=== PATIENT | male | born 1965 | race American Indian/Alaskan Native ===

== ENCOUNTER 2023-09-07 16:08 | Emergency (ER) | payer OTHER, SELFPAY ==
[2023-09-07 16:20] VITALS: BP 132/70; PULSE 90; O2SAT 96
[2023-09-07 16:28] VITALS: BP 108/59; PULSE 77; RESP 20; TEMP 36.6; BMI 28.0
[2023-09-07 16:44] VITALS: PULSE 81; O2SAT 96
[2023-09-07 17:14] VITALS: TEMP 36.4
--- NOTE | 2023-09-07 17:18 | ED_ITS ---
HPI - General Adult General Chief complaint: ETOH/Substance Use Stated complaint: ETOH, chronic left knee pain Time Seen by Provider: 09/07/23 16:52 Source: patient and EMS Mode of arrival: EMS Limitations: no limitations History of Present Illness HPI narrative: Patient is a 58 year old assigned male at with a history of left knee pain presenting to the emergency department today with he has had fluid on his left knee multiple times before and he believes he has fluid again and pain. Patient denies any dizziness, lightheadedness, abdominal pain, nausea, vomiting, fever, chills, blurry vision, double vision, loss of vision, chest pain, difficulty breathing, shortness of breath, back pain, night sweats, pain with urination, increased urinary frequency, increased urinary urgency, blood in his urine or s tool, syncope or a near syncopal episode, recent trauma or falls, bowel incontinence, bladder incontinence, bowel retention, bladder retention, or any other complaints at this time. Onset (ago): day(s) Location: left and lower extremity Severity: mild Severity scale (1-10): 3 Relieving factors: none Exacerbating factors: none Associated symptoms: denies other symptoms Treatments prior to arrival: none Related Data Allergies Allergy/AdvReac Type Severity Reaction Status Date / Time No Known Allergies Allergy Verified 09/07/23 16:30 Review of Systems Constitutional: Constitutional: Reports no additional constitutional complaints, Denies chills, Denies fever(s) and Denies night sweats Eyes: Eyes: Reports no additional eye complaints, Denies blurry vision, Denies change in vision, Denies diplopia, Denies eye discharge, Denies loss of vision and Denies eye pain ENT: Denies dizziness Cardiovascular: Cardiovascular: Reports no additional cardiovascular complaints, Denies chest pain, Denies lightheadedness, Denies Loss of Consciousness and Denies dyspnea Respiratory: Respiratory: Reports no additional respiratory complaints and Denies dyspnea Gastrointestinal: Gastrointestinal: Reports no additional gastrointestinal complaints, Denies abdominal pain, Denies melena, Denies hematochezia, Denies change in bowel habits and Denies change in stool character Genitourinary: Genitourinary: Reports no additional male genitourinary complaints, Denies hematuria, Denies oliguria, Denies difficulty urinating, Denies dysuria, Denies urinary frequency, Denies urinary hesitancy, Denies urinary incontinence and Denies urinary urgency Musculoskeletal: Musculoskeletal: Reports no additional musculoskeletal complaints, Denies numbness and Denies tingling Comments: left knee pain Neurologic: Denies dizziness, Denies loss of vision, Denies numbness and Denies tingling Psychiatric: Psychiatric: Reports no additional psychiatric complaints Endocrine: Endocrine: Reports no additional endocrine complaints Hematologic/Lymphatic: Hematologic/Lymphatic: Reports no additional hematologic/lymphatic complaints Allergic/Immunologic: Allergic/Immunologic: Reports no additional allergic/immunologic complaints [facility] Past Medical History Attestation statement: The following information was validated with the patient. Source: old records reviewed and nursing notes reviewed Social History Social History Alcohol intake: current Alcohol intake frequency: 3 or more drinks per day Alcohol type: hard liquor Smoked in Last 30 Days: No Advance Directives: No Advance Directives Information Provided: No Physical Exam ED Vital Signs: Vital Signs - 24 hr 09/07/23 16:28 09/07/23 16:44 09/07/23 17:14 Temperature 97.9 F 97.5 F Pulse Rate 77 81 Respiratory Rate 20 Blood Pressure 108/59 L Pulse Oximetry 96 Oxygen Delivery Method Room Air 09/07/23 18:14 09/07/23 18:38 Temperature 98.4 F 97.9 F Pulse Rate 84 100 Respiratory Rate 18 16 Blood Pressure 130/86 141/85 H Pulse Oximetry 98 98 Oxygen Delivery Method Room Air Room Air BMI result Body Mass Index 28.0 Const General: cooperative, no acute distress, alert and awake Nutritional Appearance: well nourished Orientation/consciousness: patient oriented x3 Limitations: no limitations [facility] Head: Yes normal to inspection and Yes atraumatic Ears: hearing grossly normal bilaterally and external ears normal General nose exam: Normal external nose present, no nasal discharge noted and no epistaxis Face and sinus: Yes normal facial exam, No abrasion and No laceration Mouth: Normal oral and palatal mucosa present, no drooling and no muffled voice Eyes General: appearance normal, both eyes and all related structures Periorbital: periorbital findings normal Eyelids: Yes eyelids normal Conjunctivae: conjunctivae normal Pupils: Equal, round and reactive pupils present EOM: EOMs intact bilaterally Neck Neck: Yes normal visual inspection, Yes full ROM and Yes no lymphadenopathy Chest Chest palpation & inspection: normal inspection of the chest Resp Effort & Inspection: normal respiratory effort and able to speak in complete sentences GI Inspection: Yes normal to inspection Neuro General: patient oriented x3 and moves all extremities Cranial nerves: Yes Equal, round and reactive pupils present Cognition (Neuro): normal cognition Motor exam (neuro): 5/5 motor strength present throughout Sensory Exam: Normal double simultaneous stimulation for sensation Coordination: [id number] test normal Extrem Other: minimal swelling present to the left knee General: Yes full ROM and Yes capillary refill normal Psych Appearance: grossly normal Mental Status: mental status grossly normal Affect: normal affect Attitude: cooperative Thought process: Normal thought process present Thought content: Normal thought content present Insight: Good insight present (Psych) Procedures Orthopedic Splinting/Casting Injury #1: Side: left Lower Extremity Injury Location: knee Lower Extremity Immobilizer: Cayden wrap Medical Decision Making Medical Decision Making MDM Narrative: Patient is a 58 year old assigned male at with a history of chronic left knee pain presenting to the emergency department today with left knee pain. Patient's physical exam was as noted in the physical exam portion of this note. I explained my physical exam findings to the patient. I answered all questions asked by the patient. Patient's left knee was wrapped in an CAYDEN wrap, without incident. Patient's PMS was intact prior to and after CAYDEN wrpa. I stressed the importance of the patient taking his medication as prescribed. I stressed the im portance of the patient following up with his primary care provider. I stressed the importance of the patient returning to the emergency department immediately if his symptoms were to worsen or if he were to develop any dizziness, shortness of breath, difficulty breathing, chest pain, blurry vision, loss of vision, nausea, vomiting, abdominal pain, fever, chills, back pain, or any other complaints. Patient verbalized agreement and understanding with this treatment plan and discharge. Differential Diagnosis Differential Diagnoses: The differential diagnosis associated with the presentation includes Joint effusion Knee pain Knee sprain Knee strain Chronic knee pain Admission/Observation Consideration of admission/observation: Escalation of care including admission/observation considered Patient would have been admitted to the hospital had his clinical presentation warranted hospital admission. Independent Historian Clinical information obtained from an independent historian. History obtained from or confirmed by: EMS (EMS provided additional history and confirmed the history provided by the patient. ) Discharge Plan Discharge Clinical Impression: Joint effusion Patient Disposition: Home, Self-Care Instructions: Swollen Knee Joint (ED) Additional Instructions: Follow up with your primary care provider and your orthopedic provider. Return to the emergency department immediately if your symptoms worsen or if you develop any dizziness, shortness of breath, difficulty breathing, chest pain, blurry vision, loss of vision, nausea, vomiting, abdominal pain, fever, chills, back pain, or any other complaints. Referrals: [facility] Family Medicine [Provider Group] (Call to establish and follow up with a primary care provider. If you already have a primary care provider, please follow up with them.) [facility] Primary Care, [facility] [Provider Group] (Call to establish and follow up with a primary care provider. If you already have a primary care provider, please follow up with them.) [facility] Primary Care,[facility] [Provider Group] (Call to establish and follow up with a primary care provider. If you already have a primary care provider, please follow up with them.) [facility] Orthopedic Surgeons [Provider Group] (Call to establish and follow up with an orthopedic provider if you are no longer following with yours. ) Interventions: ED Discharge Assessment Last Done: 09/07/23 18:41 Discharge Date/Time: 09/07/23 18:41 Print Language: Thai
--- NOTE | 2023-09-07 17:35 | PC.NURSE ---
[place], ETOH and bilateral knee pain. on arrival pt is alert and cooperative, vital signs stable, pt is answering this nurses questions. endorses 10/10 left knee pain. sts he is drinking because his pain is unbearable . CIWA score 0 at this time, COWS score 0. PA dee aware.
[2023-09-07 18:14] VITALS: BP 130/86; PULSE 84; RESP 18; TEMP 36.9; O2SAT 98
[2023-09-07 18:38] VITALS: BP 141/85; PULSE 100; RESP 16; TEMP 36.6; O2SAT 98
== END 2023-09-07 18:41 | disposition home or self-care (01) ==
PROVIDERS: Emergency Provider Emergency Medicine
DX: M25.462 Effusion, left knee (principal); M25.562 Pain in left knee
CPT/HCPCS: 99283; 99284

== ENCOUNTER 2023-10-04 09:01 | Outpatient (REF) | payer OTHER, SELFPAY ==
--- NOTE | ~2023-10-04 | XR_ITS ---
EXAMINATION: XR KNEE, LEFT XR KNEE, RIGHT XR KNEE, BILATERAL STANDING CLINICAL INFORMATION: Pain in unspecified knee. TECHNIQUE: AP standing view of bilateral knees. [place] and lateral views of each knee. COMPARISON: None. FINDINGS: LEFT KNEE: No significant joint effusion. Bones are diffusely demineralized. Severe degenerative changes with joint space narrowing, hypertrophic change and remodeling of articular surfaces in the patellofemoral and medial compartments. Moderate lateral joint space narrowing. RIGHT KNEE: No significant joint effusion. Moderate degenerative changes with tiny marginal osteophytes and mild joint space narrowing in the patellofemoral and medial compartments. XR/XR knee RT 2V IMPRESSION: 1. Severe degenerative changes left knee. 2. Moderate degenerative changes right knee.
--- NOTE | ~2023-10-04 | XR_ITS ---
EXAMINATION: XR KNEE, LEFT XR KNEE, RIGHT XR KNEE, BILATERAL STANDING CLINICAL INFORMATION: Pain in unspecified knee. TECHNIQUE: AP standing view of bilateral knees. [place] and lateral views of each knee. COMPARISON: None. FINDINGS: LEFT KNEE: No significant joint effusion. Bones are diffusely demineralized. Severe degenerative changes with joint space narrowing, hypertrophic change and remodeling of articular surfaces in the patellofemoral and medial compartments. Moderate lateral joint space narrowing. RIGHT KNEE: No significant joint effusion. Moderate degenerative changes with tiny marginal osteophytes and mild joint space narrowing in the patellofemoral and medial compartments. XR/XR knee standing BI IMPRESSION: 1. Severe degenerative changes left knee. 2. Moderate degenerative changes right knee.
--- NOTE | ~2023-10-04 | XR_ITS ---
EXAMINATION: XR KNEE, LEFT XR KNEE, RIGHT XR KNEE, BILATERAL STANDING CLINICAL INFORMATION: Pain in unspecified knee. TECHNIQUE: AP standing view of bilateral knees. [place] and lateral views of each knee. COMPARISON: None. FINDINGS: LEFT KNEE: No significant joint effusion. Bones are diffusely demineralized. Severe degenerative changes with joint space narrowing, hypertrophic change and remodeling of articular surfaces in the patellofemoral and medial compartments. Moderate lateral joint space narrowing. RIGHT KNEE: No significant joint effusion. Moderate degenerative changes with tiny marginal osteophytes and mild joint space narrowing in the patellofemoral and medial compartments. XR/XR knee LT 2V IMPRESSION: 1. Severe degenerative changes left knee. 2. Moderate degenerative changes right knee.
== END 2023-10-04 09:02 | disposition home or self-care (01) ==
LOC: HO.HOSX 09:01
PROVIDERS: Visit Provider Physician Assistant
DX: M25.561 Pain in right knee (principal); M25.562 Pain in left knee; M17.0 Bilateral primary osteoarthritis of knee
CPT/HCPCS: 20610; 73560; 73565; 99212; J1040

== ENCOUNTER 2023-10-04 09:55 | Outpatient (AMB) | payer MEDICAID, SELFPAY ==
--- NOTE | 2023-10-04 10:08 | MHC.OFFVIS ---
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 Hx of left knee surgery. Patient reports ongoing pain ever since he played football which banged his left knee. He was seen at [facility] ED on 09/07/23 for his left knee pain and swelling, referral was placed for orthopedics. Currently is having more pain on the left knee than his right. Pain is worse when walking pre patient. He reports that resting and taking ibuprofen 800mg provides him with relief. 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 The patient presented to the ED on 09/07/2023 via EMS after being found at a bus stop with a complaint of fluid on the left knee. He was placed in an INOCENCIA wrap and referred to Orthopedics. Patient states he was waiting at the bus stop to go to ?the clinic? at [facility], but did not specify which clinic. While in the office today the patient he has a knee injury in 2014. He states he has had on going pain every since he played football and hit his left knee. He reports he has more pain in the left knee then the right. He claims pain increases with ambulation. He reports resting and taking Ibuprofen 800 mg gives him relief. He will also sit in the tube to help with pain relief. Patient has a history of left knee surgery due to his knee being infected, 9 years ago, 2013 at [facility]. He states it took him 3 years to walk. Patient denies a medical history of diabetes mellitus. [facility] Social History (Updated 10/04/23 @ 10:14 by Babatunde Jose) Alcohol intake: current Alcohol intake frequency: 3 or more drinks per day Alcohol type: hard liquor Patient Tobacco Use Status: Current everyday Tobacco user Current occupational status: disabled Review of Systems Const All systems reviewed & are unremarkable except as noted in HPI and below Physical Exam Const General: cooperative and no acute distress Orientation/consciousness: patient oriented x3 Resp Effort & Inspection: normal respiratory effort and able to speak in complete sentences Cardio Peripheral pulses: Peripheral pulses 2+ throughout Skin General skin exam: no rashes or lesions noted Neuro General: patient oriented x3 Extrem Other: Bilateral knees: Normal to inspection. No ecchymosis, erythema, or joint effusion. No tenderness to palpation to the medial or lateral joint lines. Full knee extension and flexion. Crepitus felt with ROM of the left knee. NVI. Office Procedures Joint Injection/Drain Joint Injection/Drain Primary Site: right knee Secondary Site: left knee Injected: 80 mg of, DepoMedrol, with 8 mL of (2% plain lido ) and in the joint Approach Used: anterolateral Procedure: The patient tolerated the procedure well, but had some pain with the injection and there was some relief with the local anesthesia Coding 81634 - Large joint Procedure code (CPT) selection complete Assessment & Plan Assessment & Plan (1) Osteoarthritis of left knee: Code(s): M17.12 - Unilateral primary osteoarthritis, left knee (2) Osteoarthritis of right knee: Code(s): M17.11 - Unilateral primary osteoarthritis, right knee Plan Mr. Conteh is a 58-year-old male who presents in the office today, as a new patient, for an evaluation of bilateral knee pain. The patient presented to the ED on 09/07/2023 via EMS after being found at a bus stop with a complaint of fluid on the left knee. He was placed in an INOCENCIA wrap and referred to Orthopedics. Patient states he was waiting at the bus stop to go to ?the clinic? at [facility], but did not specify which clinic. While in the office today the patient he has a knee injury in 2015. He states he has had on going pain every since he played football and hit his left knee. He reports he has more pain in the left knee then the right. He claims pain increases with ambulation. He uses a cane to assist with ambulation. He reports resting and taking Ibuprofen 800 mg gives him relief. He will also sit in the tube to help with pain relief. Patient has a history of left knee surgery due to his knee being infected, 9 years ago, 2013 at [facility]. He states it took him 3 years to walk after surgery and antibiotics. Patient denies a medical history of diabetes mellitus. The patient was offered a cortisone injection in the bilateral knees with 80 mg of DepoMedrol. The patient was explained the risk, benefits, and alternatives to receiving this injection. After receiving consent for the injection, the patient had the procedure done while in office today. The patient tolerated the procedure well with no complications. Follow up will be PRN, or sooner if needed. X-rays of the bilateral knees which were obtained while in the office today and were reviewed by me, Germania Sears PA-C, revealed osteoarthritis. Of note: Per EMS report from 09/07/2023 the patient is currently homeless and was found at a bus stop after a call was made for overdose/poisoning. Orders: Orders XR knee standing BI Today M25.569 - Pain in unspecified knee XR knee RT 2V Today M25.569 - Pain in unspecified knee XR knee LT 2V Today M25.569 - Pain in unspecified knee XR foot RT min 3V Today M79.673 - Pain in unspecified foot Patient Instructions: Scribed by Nadiya Li director of medical staff services, for Germania Sears PA-C on 10/04/2023 at 9:59 am, EST. Coding Level of Care Code New Pt Level 4 (00788) Diagnoses Osteoarthritis of left knee M17.12 Osteoarthritis of right knee M17.11 CPT Codes Coding - 89530 Large joint: 29908 - Large joint ([id number])
== END 2023-10-04 10:39 | disposition home or self-care (01) ==
PROVIDERS: Visit Provider Physician Assistant
DX: M17.0 Bilateral primary osteoarthritis of knee (principal)
CPT/HCPCS: 20610; 99204

== ENCOUNTER 2024-05-28 12:54 | Outpatient (AMB) | payer OTHER, SELFPAY ==
--- NOTE | 2024-05-28 12:56 | A.OFFVIS_ITS ---
Intake Visit Reasons: inj-Left knee injection-last inj. 10/04/23 Intake Note: Ankur is a 58 year old male who presents today for a repeat injection for his left knee, last injections were B/L on 10/04/23. Patient reports his last injection gave him about 1 month and a half of relief but he would like to repeat again. Allergies No Known Allergies Allergy (Verified 05/28/24 13:02) [facility] HPI inj-Left knee injection-last inj. 10/04/23: Details: 58-year-old male who presents in the office today for a follow-up of bilateral knee pain. I last saw the patient in the office on 10/04/23 when he was given a cortisone injection in the bilateral knees. While in the office today, the patient reports his last cortisone injection in the bilateral knees provided him about 1.5 months of relief. He would like to have a repeat injection today. Patient has a history of left knee surgery due to his knee being infected, 9 years ago, 2013 at [facility]. Patient denies a medical history of diabetes mellitus. [facility] Social History (Updated 10/04/23 @ 10:14 by Babatunde Jose) Alcohol intake: current Alcohol intake frequency: 3 or more drinks per day Alcohol type: hard liquor Patient Tobacco Use Status: Current everyday Tobacco user Current occupational status: disabled Review of Systems Const All systems reviewed & are unremarkable except as noted in HPI and below Physical Exam Const General: cooperative and no acute distress Orientation/consciousness: patient oriented x3 Resp Effort & Inspection: normal respiratory effort and able to speak in complete sentences Cardio Rate: regular rate Peripheral pulses: Peripheral pulses 2+ throughout GI Palpation (GI): Soft to palpation Skin General skin exam: no rashes or lesions noted Lesions: no lesions Rashes: no rashes Neuro General: patient oriented x3 Extrem Other: Bilateral knees: Normal to inspection. No ecchymosis, erythema, or joint effusion. No tenderness to palpation to the medial or lateral joint lines. Full knee extension and flexion. Crepitus felt with ROM of the left knee. NVI. Office Procedures Joint Injection/Aspiration Joint Injection/Aspiration Primary Site: right knee Secondary Site: left knee Prep: site was prepped using aseptic technique, ethochloride spray was applied and injection warnings given Injected: 80 mg of, DepoMedrol, with 8 mL of (2% plain lido ) and in the joint Approach Used: anterolateral Procedure: The patient tolerated the procedure well, but had some pain with the injection and there was some relief with the local anesthesia Coding 32127 - Large joint Procedure code (CPT) selection complete Assessment & Plan Assessment & Plan (1) Osteoarthritis of left knee: Code(s): M17.12 - Unilateral primary osteoarthritis, left knee Category: Medical (2) Osteoarthritis of right knee: Code(s): M17.11 - Unilateral primary osteoarthritis, right knee Category: Medical Plan Mr. Conteh is a 58-year-old male who presents in the office today for a follow- up of bilateral knee pain. I last saw the patient in the office on 10/04/23 when he was given a cortisone injection in the bilateral knees. While in the office today, the patient reports his last cortisone injection in the bilateral knees provided him about 1.5 months of relief. He would like to have a repeat injection today. Patient has a history of left knee surgery due to his knee being infected, 9 years ago, 2013 at [facility]. Patient denies a medical history of diabetes mellitus. The patient was offered a cortisone injection in the bilateral knees with 80 mg of Depo-Medrol. The patient was explained the risks, benefits, and alternatives to receiving this injection. After receiving consent for the injection, the patient had the procedure done while in the office today. The patient tolerated the procedure well with no complication. Follow-up will be PRN, or sooner if needed. Patient Instructions: Scribed by Lauren Drummond medical transcription, for Germania Sears PA-C on 05/28/24 at 1:12 pm EST. Coding Level of Care Code Est Pt Level 3 (11861) Diagnoses Osteoarthritis of left knee M17.12 Osteoarthritis of right knee M17.11 CPT Codes Coding - Large joint: 79023 - Large joint ([id number])
== END 2024-05-28 14:02 | disposition home or self-care (01) ==
PROVIDERS: Visit Provider Physician Assistant
DX: M17.0 Bilateral primary osteoarthritis of knee (principal)
CPT/HCPCS: 20610; 99213

== ENCOUNTER → 2024-05-28 12:54 | Outpatient (BNVA) | payer OTHER, SELFPAY | PROVIDERS: Visit Provider Physician Assistant | DX: M17.0 Bilateral primary osteoarthritis of knee (principal) | CPT/HCPCS: 20610; 99212; J1010; J2003 ==